=== PATIENT | male | born 1950 | race Caucasian/White ===

== ENCOUNTER → 2017-05-22 | Outpatient (CLI) | payer MEDICARE, OTHER ==
[~2017-05-22] MED LIST: ADULTS 50+ MUL1 EACH PO; ANTIVERT **IA12.5 MG PO; ASPIRIN LO-DOSE81 MG PO; CORDARONE,PACE200 MG PO; COREG6.25 MG PO; LANOXIN (DIGI125 MCG PO; LEVOTHROID (SY50 MCG PO; LIPITOR80 MG PO; MAG-OX-400(241400 MG PO; MONOPRIL10 MG PO; PLAVIX75 MG PO; TYLENOL325 MG PO; VALIUM2 MG PO
[2017-05-22 09:08] LABS: BASOPHIL # 0.1 K/uL (0.0-0.2); BASOPHIL % 0.8 %; EOSINOPHIL # 0.2 K/uL (0.0-0.5); HEMATOCRIT 44.1 % (37.0-53.0); HEMOGLOBIN 14.8 g/dL (11.0-16.0); IMMATURE GRANULOCYTE % 0.3 %; LYMPHOCYTE # 1.4 K/uL (0.8-4.0); LYMPHOCYTE % 22.1 %; MCH 31.5 pg (27.0-34.0); MCHC 33.6 gm/dL (32.0-36.5); MCV 93.8 fl (83.0-98.0); MONOCYTE # 0.6 K/uL (0.0-1.0); MONOCYTE % 9.8 %; MPV 10.1 fl (9.4-12.4); NEUTROPHIL # (ANC) 4.1 K/uL (1.4-9.0); NRBC % 0 /100WBC (0-0.00); PLATELET COUNT 244 K/uL (150-450); RDW-CV 13.8 % (11.9-14.6); WBC 6.4 K/uL (4.0-11.0)
[2017-05-22 09:26] LABS: ALBUMIN 3.1 gm/dL (3.5-5.0); ANION GAP 8.1 (10.0-19.0); CALCIUM 8.3 mg/dL (8.5-10.5); CREATININE 1.2 mg/dL (0.6-1.3); POTASSIUM 4.1 mMol/L (3.7-5.1); TOTAL BILIRUBIN 0.8 mg/dL (0.0-1.5); TOTAL PROTEIN 6.7 g/dL (6.0-8.4)
== END ==
LOC: LNHI 08:57
PROVIDERS: Internal Medicine Cardiovascular Disease
DX: I25.5 Ischemic cardiomyopathy (principal); I47.2 Ventricular tachycardia; I25.10 Atherosclerotic heart disease of native coronary artery without angina pectoris; I50.22 Chronic systolic (congestive) heart failure